=== PATIENT | female | born 1995 | race Caucasian/White ===

== ENCOUNTER 2017-12-24 14:04 | Emergency (ER) | payer OTHER ==
[~2017-12-24] VITALS: Ht 160 cm; Wt 68.0 kg
--- NOTE | 2017-12-24 14:54 | NUR ---
called xray, pt wants to sign a waiver for test.
[2017-12-24 15:10] VITALS: BP 124/77
[2017-12-24] MEDS ORDERED: IBUPROFEN 600 MG TABLET PO ONE ×2 (16:30→16:35)
== END 2017-12-24 17:02 | disposition home or self-care (01) ==
LOC: ER 14:06
DX: S13.4XXA Sprain of ligaments of cervical spine, initial encounter (principal); S70.01XA Contusion of right hip, initial encounter; S09.8XXA Other specified injuries of head, initial encounter; V49.59XA Passenger injured in collision with other motor vehicles in traffic accident, initial encounter; Y93.89 Activity, other specified; Y92.413 State road as the place of occurrence of the external cause; Y99.8 Other external cause status
CPT/HCPCS: 70450-TC; 72125-TC; 73502; A4606; Z7610